=== PATIENT | female | born 1985 | race Caucasian/White ===

== ENCOUNTER 2020-09-16 11:24 | Emergency (ER) | payer SELFPAY ==
--- NOTE | 2020-09-16 13:27 | ER ---
Nurse's Notes [facility] Name: Zayda Odell Age: 35 yrs Sex: Female : 1985 Arrival Date: 09/16/2020 Time: 11:28 Bed 24 Private MD: Diagnosis: Local infection of the skin and subcutaneous tissue, unspecified Presentation: 09/16 12:13 Chief complaint: Patient states: rash to right side of face since Tuesday, is tender and iw the right side of face is swollen. Coronavirus screen: At this time, the client does not indicate any symptoms associated with coronavirus-19. Ebola Screen: Patient negative for fever greater than or equal to 101.5 degrees Fahrenheit, and additional compatible Ebola Virus Disease symptoms Patient denies exposure to infectious person. Patient denies travel to an Ebola-affected area in the 21 days before illness onset. No symptoms or risks identified at this time. Initial Sepsis Screen: Does the patient meet any 2 criteria? No. Patient's initial sepsis screen is negative. Does the patient have a suspected source of infection? No. Patient's initial sepsis screen is negative. Risk Assessment: Do you want to hurt yourself or someone else? Patient reports no desire to harm self or others. Onset of symptoms was September 14, 2020. 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 - Social history:: Smoking status: Patient denies any tobacco usage or history of. Screenin:40 Abuse screen: Denies threats or abuse. Nutritional screening: No deficits noted. jd3 Tuberculosis screening: No symptoms or risk factors identified. Fall Risk None identified. Assessment: 13:39 General: Appears in no apparent distress. uncomfortable, Behavior is calm, cooperative, jd3 appropriate for age. Pain: Complains of pain in right side of neck Quality of pain is described as aching. Neuro: Level of Consciousness is awake, alert, obeys commands, Oriented to person, place, time, situation. Cardiovascular: Capillary refill < 3 seconds Patient's skin is warm and dry. Respiratory: Airway is patent Respiratory effort is even, unlabored, Respiratory pattern is regular, symmetrical, Denies cough, shortness of breath. GI: No signs and/or symptoms were reported involving the gastrointestinal system. : No signs and/or symptoms were reported regarding the genitourinary system. EENT: No signs and/or symptoms were reported regarding the EENT system. Derm: Skin is intact, Skin is dry, Skin is normal, Skin temperature is warm Rash noted that is itchy, on right side of neck. Vital Signs: 12:13 BP 126 / 86; Pulse 75; Resp 16; Temp 97.9; Pulse Ox 100% on R/A; iw ED Course: 11:28 Patient arrived in ED. mr 12:08 Dianna Pool FNP-C is [facility]. kb 12:08 Abel Osorio MD is Attending Physician. kb 12:16 Triage completed. iw 12:16 Arm band placed on. iw 13:09 Rich Avila, KEIKO is Primary Nurse. jd3 13:40 Patient has correct armband on for positive identification. Bed in low position. Call jd3 light in reach. Side rails up X 1. Pulse ox on. NIBP on. 13:40 No provider procedures requiring assistance completed. Patient did not have IV access jd3 during this emergency room visit. Administered Medications: 13:20 Drug: predniSONE 40 mg Route: PO; jd3 13:41 Follow up: Response: No adverse reaction jd3 13:20 Drug: Bactrim (160 mg-800 mg (DS) 1 tablet Route: PO; jd3 13:41 Follow up: Response: No adverse reaction jd3 Outcome: 13:26 Discharge ordered by MD. kb 13:40 Discharged to home ambulatory. jd3 13:40 Condition: stable 13:40 Discharge instructions given to patient, Instructed on discharge instructions, follow up and referral plans. medication usage, Demonstrated understanding of instructions, follow-up care, medications, Prescriptions given X 2. 13:41 Patient left the ED. jd3 Signatures: Dianna Pool FNP-C FNP-Vanessa [place] Jamee Gibbs RN RN iw Rich Avila, KEIKO RN jd3 Corrections: (The following items were deleted from the chart) 12:16 12:13 Pulse 75bpm; Resp 16bpm; Temp 97.9F; iw iw
--- NOTE | 2020-09-16 13:27 | EDPHYS ---
Physician Documentation [facility] Name: Zayda Odell Age: 35 yrs Sex: Female : 1985 Arrival Date: 09/16/2020 Time: 11:28 Bed 24 Private MD: ED Physician Abel Osorio HPI: 09/16 17:39 This 35 yrs old Female presents to ER via Ambulatory with complaints of Rash, kb Facial Swelling. 17:39 The patient's rash thought to be caused by an unknown cause. The rash is located on the kb right cheek. The rash can be described as papular. Severity of symptoms: At their worst the symptoms were moderate in the emergency department the symptoms are unchanged. The patient has not experienced similar symptoms in the past. The patient has not recently seen a physician. 17:40 Onset: The symptoms/episode began/occurred 3 day(s) ago. Associated signs and symptoms: kb Pertinent positives: itching, Pain. Pt reports rash that started Tuesday with itching. States there is pain if she scratches the area. Started swelling yesterday. . 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 - Social history:: Smoking status: Patient denies any tobacco usage or history of. ROS: 17:34 Constitutional: Negative for fever, chills, and weight loss, MS/Extremity: Negative for kb injury and deformity, Neuro: Negative for headache, weakness, numbness, tingling, and seizure. 17:34 Neck: Positive for swelling. 17:34 Skin: Positive for rash, of the right cheek. Exam: 17:37 Constitutional: This is a well developed, well nourished patient who is awake, alert, kb and in no acute distress. Head/Face: Normocephalic, atraumatic. MS/ Extremity: Pulses equal, no cyanosis. Neurovascular intact. Full, normal range of motion. Neuro: Awake and alert, GCS 15, oriented to person, place, time, and situation. Cranial nerves II-XII grossly intact. Motor strength 5/5 in all extremities. Sensory grossly intact. Cerebellar exam normal. Normal gait. 17:37 Neck: Lymph nodes: lymphadenopathy is appreciated, anterior cervical nodes. 17:37 Skin: Appearance: normal except for affected area, swelling, noted on the right submandibular area, consistent with contact dermatitis, on the right cheek. Vital Signs: 12:13 BP 126 / 86; Pulse 75; Resp 16; Temp 97.9; Pulse Ox 100% on R/A; iw MDM: 12:08 Patient medically screened. kb 17:34 Data reviewed: vital signs, nurses notes. Data interpreted: Pulse oximetry: on room air kb is 100 %. Interpretation: normal. Counseling: I had a detailed discussion with the patient and/or guardian regarding: the historical points, exam findings, and any diagnostic results supporting the discharge/admit diagnosis, the need for outpatient follow up, a family practitioner, to return to the emergency department if symptoms worsen or persist or if there are any questions or concerns that arise at home. Administered Medications: 13:20 Drug: predniSONE 40 mg Route: PO; jd3 13:41 Follow up: Response: No adverse reaction jd3 13:20 Drug: Bactrim (160 mg-800 mg (DS) 1 tablet Route: PO; jd3 13:41 Follow up: Response: No adverse reaction jd3 Disposition: 18:34 Co-signature as Attending Physician, Abel Osorio MD. rn Disposition: 09/16/20 13:26 Discharged to Home. Impression: Local infection of the skin and subcutaneous tissue, unspecified. - Condition is Stable. - Discharge Instructions: Shingles, [id number], Rash, [id number]. - Prescriptions for Valtrex 1 g Oral Tablet - take 1 tablet by ORAL route every 8 hours for 7 days; 21 tablet. Bactrim DS 800- 160 mg Oral Tablet - take 1 tablet by ORAL route every 12 hours for 7 days; 14 tablet. - Medication Reconciliation Form, Thank You Letter, Antibiotic Education, Prescription Opioid Use, Work release form form. - Follow up: Emergency Department; When: As needed; Reason: Worsening of condition. Follow up: Private Physician; When: 2 - 3 days; Reason: Recheck today's complaints, Continuance of care, Re-evaluation by your physician. Signatures: Dianna Pool, DOMINGO-C REGIONAL PRODUCTION MANAGER-Jamee Prather, Abel Frank RN, MD MD rn Davies, Jonathon, RN RN jd3 Corrections: (The following items were deleted from the chart) 13:41 13:26 09/16/2020 13:26 Discharged to Home. Impression: Local infection of the skin and jd3 subcutaneous tissue, unspecified. Condition is Stable. Forms are Medication Reconciliation Form, Thank You Letter, Antibiotic Education, Prescription Opioid Use. Follow up: Emergency Department; When: As needed; Reason: Worsening of condition. Follow up: Private Physician; When: 2 - 3 days; Reason: Recheck today's complaints, Continuance of care, Re-evaluation by your physician. kb
[2020-09-16] MEDS ORDERED: SMZ./TMP. 800/160 MG TABLET ONE (13:29)
[2020-09-16] MEDS ORDERED: predniSONE 20 MG TAB ONE (13:29)
[2020-09-16 14:21] VITALS: BP 126/86; TEMP 97.9; O2SAT 100
== END 2020-09-16 13:41 | disposition home or self-care (01) ==
LOC: ER 11:24
DX: L08.9 Local infection of the skin and subcutaneous tissue, unspecified (principal)
CPT/HCPCS: 99283; J7512

== ENCOUNTER 2021-12-15 13:04 | Emergency (ER) | payer SELFPAY ==
--- OUTSIDE RECORDS SUMMARY | 2021-12-15 13:06 | XMS REPORT | Continuity of Care Document ---
:1985 Author Organization [facility] t Address [address] [place] [address] Care Team Providers Name Role Phone Pcp, Does Not Have A Primary Care Physician Doctor Unassigned, Name Attending Clinician Unavailable Sariah ANDERS Attending Clinician Unavailable Sariah Anders DO Attending Clinician Problems This patient has no known problems. Allergies, Adverse Reactions, Alerts Allergy Allergy Status Severity Reaction(s) Onset Inactive Treating Comm ents Source Name Type Date Date Clinician NO KNOWN Drug Active Univers ALLERGIE Class ity [facility] Social History Social Habit Start Date Stop Date Quantity Comments Source Exposure to Not sure [facility] SARS-CoV-2 (event) [facility] Sex Assigned At [birth year] [facility] 00:00:00 00:00:00 [facility] Smoking Status Start Date Stop Date Source Unknown if ever smoked [facility] Medications This patient has no known medications. Vital Signs Vital Name Observation Time Observation Value Comments Source Systolic blood 2021-09-02 22:25:00 137 mm[Hg] [facility]iver [facility] Diastolic blood 2021-09-02 22:25:00 88 mm[facility]Hg[facility] 2021-09-02 22:25:00 97 /min [facility] Body temperature 2021-09-02 22:25:00 37.78 [facility] Respiratory rate 2021-09-02 22:25:00 18 /min [facility] Body height 2021-09-02 22:25:00 167.6 cm [facility] Body weight 2021-09-02 22:25:00 83.915 kg [facility] BMI 2021-09-02 22:25:00 29.86 kg/m2 [facility] Oxygen saturation in 2021-09-02 22:25:00 100 /min [facility] Arterial blood by [facility] Pulse oximetry Branch Procedures Procedure Date / Time Performing Clinician Source Performed AUTHORIZATION FOR 2021-09-23 06:01:00 Doctor Unassigned, No [facility] RELEASE OF PHI Name [facility] Encounters Start End Encounter Admission Attending Care Care Encounter Source Date/Time Date/Time Type Type Clinicians Facility Department ID 2021-09-23 2021-09-23 Orders Doctor INIGUEZ [id number] Univers 00:00:00 00:00:00 Only Unassigned, JOSIANE [id number] [facility] [id number] [facility] [id number] [facility] 00[address] Branch 2021-09-02 2021-09-02 Emergency X CHAGORUST ERT [id number] Univers 16:27:00 18:02:00 SARAH gonzalez [facility] 2021-09-02 2021-09-02 Emergency ChagoRUST [id number] Univers 16:27:00 18:02:00 Sarah CUEVA [id number] ity [facility] [id number] [facility] [id number] [facility] 084 Branch Results This patient has no known results.
[2021-12-15] MEDS ORDERED: IBUPROFEN 200 MG TAB PO ONE (13:21)
--- NOTE | 2021-12-15 13:53 | ER ---
Nurse's Notes [facility] Name: Zayda Odell Age: 36 yrs Sex: Female : 1985 Arrival Date: 12/15/2021 Time: 13:04 Bed Waiting Private MD: Diagnosis: Acute tonsillitis, unspecified;Acute pharyngitis, unspecified Presentation: 12/15 13:12 Chief complaint: Patient states: Sore throat since X 5 days. White pockets on back of ld1 throat. Coronavirus screen: At this time, the client does not indicate any symptoms associated with coronavirus-19. Ebola Screen: No symptoms or risks identified at this time. Initial Sepsis Screen: Does the patient meet any 2 criteria? No. Patient's initial sepsis screen is negative. Does the patient have a suspected source of infection? No. Patient's initial sepsis screen is negative. Risk Assessment: Do you want to hurt yourself or someone else? Patient reports no desire to harm self or others. Onset of symptoms was December 15, 2021 at 13:12. 13:12 Method Of Arrival: Ambulatory ld1 13:12 Acuity: SERAFIN 4 ld1 Triage Assessment: 13:13 General: Appears in no apparent distress. comfortable, Behavior is calm, cooperative, ld1 appropriate for age. Pain: Denies pain. EENT: Reports sore throat. Neuro: Level of Consciousness is awake, alert, obeys commands, Oriented to person, place, time, situation. Cardiovascular: Capillary refill < 3 seconds Patient's skin is warm and dry. Respiratory: Airway is patent Respiratory effort is even, unlabored, Respiratory pattern is regular, symmetrical. GI: Abdomen is flat, non-distended. : No signs and/or symptoms were reported regarding the genitourinary system. Derm: No signs and/or symptoms reported regarding the dermatologic system. Musculoskeletal: No signs and/or symptoms reported regarding the musculoskeletal system. 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 - Social history:: Smoking status: Patient denies any tobacco usage or history of. Patient/guardian denies using alcohol. Screenin:58 Abuse screen: Denies threats or abuse. Denies injuries from another. Nutritional ld1 screening: No deficits noted. Tuberculosis screening: No symptoms or risk factors identified. Fall Risk None identified. Assessment: 13:58 Reassessment: Patient appears in no apparent distress at this time. No changes from ld1 previously documented assessment. Patient and/or family updated on plan of care and expected duration. Pain level reassessed. Patient is alert, oriented x 3, equal unlabored respirations, skin warm/dry/pink. Discharged from [facility]. Respiratory: Airway is patent Respiratory effort is even, unlabored, Respiratory pattern is regular, symmetrical, Breath sounds are clear bilaterally. Vital Signs: 13:12 BP 136 / 92; Pulse 91; Resp 18; Temp 98.7(O); Pulse Ox 99% on R/A; Weight 84.82 kg; ld1 Height 5 ft. 7 in. (170.18 cm); Pain 0/10; 13:58 BP 129 / 86; Pulse 89; Resp 18; Pulse Ox 100% on R/A; ld1 13:12 Body Mass Index 29.29 (84.82 kg, 170.18 cm) ld1 ED Course: 13:04 Patient arrived in ED. am2 13:07 Belkys Armenta FNP is [facility]. jh7 13:07 Seth Aponte DO is Attending Physician. jh7 13:13 Triage completed. ld1 13:13 Arm band placed on right wrist. ld1 13:19 Strep Sent. ld1 13:58 Patient has correct armband on for positive identification. Placed in gown. Bed in low ld1 position. Call light in reach. Side rails up X2. engine monitor on. Pulse ox on. NIBP on. Door closed. Noise minimized. Warm blanket given. 13:58 No provider procedures requiring assistance completed. Patient did not have IV access ld1 during this emergency room visit. Administered Medications: 13:19 Drug: Ibuprofen 600 mg Route: PO; ld1 Medication: 13:58 VIS not applicable for this client. ld1 Outcome: 13:52 Discharge ordered by . jh7 13:58 Discharged to home ambulatory. ld1 13:58 Condition: stable 13:58 Discharge instructions given to patient, Instructed on discharge instructions, follow up and referral plans. Demonstrated understanding of instructions, follow-up care, medications, Prescriptions given X 2. 13:59 Patient left the ED. ld1 Signatures: Lesli Law Lauren RN RN ld1 Belkys Armenta, HOG TENDER HOG TENDER jh7
[2021-12-15 14:30] VITALS: BP 129/86; O2SAT 100
--- NOTE | 2021-12-16 14:00 | EDPHYS ---
Physician Documentation [facility] Name: Zayda Odell Age: 36 yrs Sex: Female : 1985 Arrival Date: 12/15/2021 Time: 13:04 Bed Waiting Private MD: ED Physician Seth Aponte HPI: 12/15 13:15 This 36 yrs old Female presents to ER via Ambulatory with complaints of Sore Throat. jh7 13:15 The patient presents with sore throat. The patient describes throat pain as burning, jh7 constant. Onset: The symptoms/episode began/occurred 4 day(s) ago. Patient reports sore throat with white patches on her throat since Tuesday morning. She denies fever or any other symptoms.. 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 - Social history:: Smoking status: Patient denies any tobacco usage or history of. Patient/guardian denies using alcohol. ROS: 13:15 Constitutional: Negative for fever, chills, and weight loss, Neck: Negative for injury, jh7 pain, and swelling, Cardiovascular: Negative for chest pain, palpitations, and edema, Respiratory: Negative for shortness of breath, cough, wheezing, and pleuritic chest pain, Abdomen/GI: Negative for abdominal pain, nausea, vomiting, diarrhea, and constipation, Back: Negative for injury and pain, Skin: Negative for injury, rash, and discoloration, Neuro: Negative for headache, weakness, numbness, tingling, and seizure. 13:15 ENT: Positive for sore throat, Negative for injury or acute deformity, ear pain, nasal discharge, sinus congestion, difficulty swallowing, difficulty handling secretions. 13:15 All other systems are negative. Exam: 13:15 Constitutional: This is a well developed, well nourished patient who is awake, alert, jh7 and in no acute distress. Eyes: Pupils equal round and reactive to light, extra-ocular motions intact. Lids and lashes normal. Conjunctiva and sclera are non-icteric and not injected. Cornea within normal limits. Periorbital areas with no swelling, redness, or edema. Neck: Trachea midline, no thyromegaly or masses palpated, and no cervical lymphadenopathy. Supple, full range of motion without nuchal rigidity, or vertebral point tenderness. No Meningismus. Cardiovascular: Regular rate and rhythm with a normal S1 and S2. No gallops, murmurs, or rubs. Normal PMI, no JVD. No pulse deficits. Respiratory: Lungs have equal breath sounds bilaterally, clear to auscultation and percussion. No rales, rhonchi or wheezes noted. No increased work of breathing, no retractions or nasal flaring. Abdomen/GI: Soft, non-tender, with normal bowel sounds. No distension or tympany. No guarding or rebound. No evidence of tenderness throughout. Skin: Warm, dry with normal turgor. Normal color with no rashes, no lesions, and no evidence of cellulitis. Neuro: Awake and alert, GCS 15, oriented to person, place, time, and situation. Normal gait. 13:15 ENT: Posterior pharynx: Tonsils: erythema, that is moderate, exudate, that is moderate. Vital Signs: 13:12 BP 136 / 92; Pulse 91; Resp 18; Temp 98.7(O); Pulse Ox 99% on R/A; Weight 84.82 kg; ld1 Height 5 ft. 7 in. (170.18 cm); Pain 0/10; 13:58 BP 129 / 86; Pulse 89; Resp 18; Pulse Ox 100% on R/A; ld1 13:12 Body Mass Index 29.29 (84.82 kg, 170.18 cm) ld1 MDM: 13:15 Patient medically screened. [facility] 13:15 Data interpreted: Pulse oximetry: is 100 %. Interpretation: normal. Counseling: I had a [facility] detailed discussion with the patient and/or guardian regarding: the historical points, exam findings, and any diagnostic results supporting the discharge/admit diagnosis, to return to the emergency department if symptoms worsen or persist or if there are any questions or concerns that arise at home. ED course: Patient strep was negative. She remained stable throughout her ER visit. She was advised to do warm salt water gargles at home, take Tylenol or ibuprofen for pain, and take the prescribed medication as directed. If she develops any new concerning symptoms, she is advised to return to the ER for eval.. 13:50 Differential diagnosis: pharyngitis, tonsillitis, viral syndrome. Data reviewed: vital [facility] signs, nurses notes. 12/15 13:14 Order name: Strep; Complete Time: 13:49 ld1 12/15 13:36 Order name: Throat Culture EDMA Administered Medications: 13:19 Drug: Ibuprofen 600 mg Route: PO; ld1 Disposition: 22:01 Co-signature as Attending Physician, Seth Aponte DO Mayer was immediately available on-site ms3 in the Emergency Department for consultation in the care of the patient. . Disposition Summary: 12/15/21 13:52 Discharge Ordered Location: Home [facility] Problem: new [facility] Symptoms: are unchanged [facility] Condition: Stable [facility] Diagnosis - Acute tonsillitis, unspecified jh7 - Acute pharyngitis, unspecified jh7 Followup: [facility] - With: Private Physician - When: 2 - 3 days - Reason: Recheck today's complaints, Continuance of care Discharge Instructions: - Discharge Summary Sheet [facility] - Pharyngitis jh7 - Sore Throat jh7 - Tonsillitis [facility] Forms: - Medication Reconciliation Form [facility] - Thank You Letter [facility] Prescriptions: - Amoxicillin 875 mg Oral Tablet - take 1 tablet by ORAL route every 12 hours for 10 days; 20 tablet; Refills: 0, [facility] Product Selection Permitted - Prednisone 20 mg Oral Tablet - take 2 tablets by ORAL route once daily for 5 days; 10 tablet; Refills: 0, [facility] Product Selection Permitted Signatures: Dispatcher [employer] EDMA Seth Aponte DO DO ms3 Kiki Tellez RN RN ld1 Belkys Armenta FNP METAL SPINNER [facility] Corrections: (The following items were deleted from the chart) 15:43 13:52 Patient medically screened. [place] [id number]
== END 2021-12-15 13:59 | disposition home or self-care (01) ==
LOC: ER 13:04
DX: J03.90 Acute tonsillitis, unspecified (principal)
CPT/HCPCS: 87070; 87081; 99284

== ENCOUNTER 2023-01-28 06:29 | Emergency (ER) | payer SELFPAY ==
--- OUTSIDE RECORDS SUMMARY | 2023-01-28 06:32 | XMS REPORT | Continuity of Care Document ---
:1985 Author Organization [facility] t Address [address] [facility] [address] [place] [address] Care Team Providers Name Role Phone Pcp, Patient Does Not Have A Primary Care Physician +[id number] Doctor Unassigned, [place] Attending Clinician Unavailable SARAH ANDERS Attending Clinician Unavailable Sarah Anders DO Attending Clinician Problems This patient has no known problems. Allergies, Adverse Reactions, Alerts Allergy Allergy Status Severity Reaction(s) Onset Inactive Treating Comm ents Source Name Type Date Date Clinician NO KNOWN Drug Active Univers ALLERGIE Class ity [facility] Social History Social Habit Start Date Stop Date Quantity Comments Source Exposure to Not sure [facility] SARS-CoV-2 (event) Medica l Branch Sex Assigned At [birth year] [facility] 00:00:00 00:00:00 [facility] Smoking Status Start Date Stop Date Source Unknown if ever smoked [facility] Medications This patient has no known medications. Vital Signs Vital Name Observation Time Observation Value Comments Source Systolic blood 2021-09-02 22:25:00 137 mm[Hg] Univer sity [facility] Diastolic blood 2021-09-02 22:25:00 88 mm[Hg] Unive rsity [facility] Heart rate 2021-09-02 22:25:00 97 /min [facility] Body temperature 2021-09-02 22:25:00 37.78 [facility] Respiratory rate 2021-09-02 22:25:00 18 /min [facility] Body height 2021-09-02 22:25:00 167.6 cm [facility] Body weight 2021-09-02 22:25:00 83.915 kg [facility] BMI 2021-09-02 22:25:00 29.86 kg/m2 [facility] Oxygen saturation in 2021-09-02 22:25:00 100 /min [facility] Arterial blood by [facility] Pulse oximetry [place] Procedures Procedure Date / Time Performing Clinician Source Performed AUTHORIZATION FOR 2021-09-23 06:01:00 Doctor Unassigned, No [facility] RELEASE OF PHI Name [facility] Encounters Start End Encounter Admission Attending Care Care Encounter Source Date/Time Date/Time Type Type Clinicians Facility Department ID 2022-09-10 2022-09-10 Outpatient [facility] [id number] Wil 13:52:12 13:52:12 [id number] [place] 2022-09-03 2022-09-03 Outpatient [facility] Wil 08:58:09 08:58:09 [id number] [place] 2021-09-23 2021-09-23 Orders Doctor HIRA [id number] Univers 00:00:00 00:00:00 Only Unassigned, JOSIANE [id number] ity of [place] [facility] [id number] [facility] [id number] [place] [id number] Branch 2021-09-02 2021-09-02 Emergency [facility] ERT [id number] Univers 16:27:00 18:02:00 SARAH gonzalez [facility] 2021-09-02 2021-09-02 [facility] [id number] Univers 16:27:00 18:02:00 Sarah CUEVA [id number] ity [facility] [id number] [facility] [id number] [facility] 084 Branch Results Test Description Test Time Test Comments Results Result Comments Source T. [facility] - [place] 2022-09-07 11:54:03 Test Item Value Reference Range Interpretation Comme nts T. P[facility] - [place] (test NON-REACTIVE NON-REACTIVE [facility] has important pathology code = 67439) staff changes effective 09/15/2022. New patholo gy staff will provide uninter rupted, excellent patient care an d clinical consultation. S ee URL: [email or web address]. UNLESS OTHERWIS E INDICATED, ALL TESTING PERFORM ED AT CLINICAL PATHOLOGY [facility]. [address] [place] [address] [address] CARRIER: ANJEL BENSON M.D. CLIA NUMBER [id number] CAP ACCREDITATION N O. [id number] PAP TEST, THINPREP, [id number] 01:52:21 Test Item Value Reference Range Interpretation Comments SOURCE: (test Cervical/Endo code = 8001) cervical SLIDES: (test 1 code = 8011) LMP: (test code = 08/10/2022 8021) SPECIMEN (NOTE) Satisfactory f or ADEQUACY: (test evaluation. Endocervical code = 45287) cells/transfor mation zone component not identified. INTERPRETATION: NILM/NO (test code = EPITH. --------- 79539) ABNORMALITY;S -------- EE BELOW NEGATIVE FO R INTRAEPITHELIAL LESION OR MALIGNANCY ( NILM) --------- --------- --------- - OTHER COMMENTS: (NOTE) Shift in delfina ra (test code = suggestive of b acterial 8081) vaginosis. ANIMAL GROOMER: Micheline (test code = MANJU Chavez( 8101) CP) LOCATION: (test (NOTE) Specimens pr ocessed and code = 67857) [facility] at [facility], [address] [place] [address], , CLIA: [id number] CPT: (test code = (NOTE) 69087 UNLE SS OTHERWISE 8140) INDICATED, COMP UTER AIDED AND CYTOTECHNOLOGIS T SCREENING PERFO RMED. The Pap test is a s creening test with an in herent, but low probabi lity of error. Your pat ient should be remin ded to consult you imm ediately if she experien whit any suspicious sign s or symptoms, regar dless of her Pap test re sult. An alternate repor t format containing imag es or consolidated pr ior Pap history is avai lable as applicable. CT/NG, NAAT, [id number] 16:09:49 Test Item Value Reference Range Interpretation Comments CHLAMYDIA, NAAT, POSITIVE NEGATIVE A Testing is performed with THINPREP (test code the 88tc88as 6800/8800 = 03174) systems usingre al-time Polymerase Paco n Reaction (PCR) method. GONORRHEA, NAAT, NEGATIVE NEGATIVE A negative result does THINPREP (test code not excl ude low level = 42640) infection, specimensamplin g error, or collection erro r. Testing is performed wi th the Keith Lalito 680 systems usingre al-time Polymerase Paco n Reaction (PCR) method. HPV HIGH RISK WITH GENOTYPE, [id number] 16:04:20 Test Item Value Reference Range Interpretation Comments HPV HIGH RISK INTERP NEGATIVE NEGATIVE (test code = 46346) HPV 16 (test code = NEGATIVE 87470) HPV 18 (test code = NEGATIVE 89436) HPV, HR, OTHER NEGATIVE Testing meth odology is GENOTYPES (test code real-ti me PCR utilizing = 43609) hydrolysis prob es with the Keith Lalito 4800 system. The jerilyn t individually de tects genotypes 16 an d 18, as well as the oth er 12 high risk types (31,33,35,39,45 ,51,52,56 ,58,59,66,68). The expected result is negative. A neg ative result does not rule out the presence of HPV not included in the genotype set, a low leve l of infection or sp ecimen sampling error. [facility] has important p athology staff changes e ffective 09/15/2022. New pathology staff will provide uninter rupted, excellent patie nt care and clinical consultation. S ee URL: [email or web address]. UNLESS OTHERWISE INDICATED, ALL [facility]. [address] [place] [address] CLIA : [id number], CAP : [id number] VAGINAL PATHOGENS DNA [id number] 14:59:01 Test Item Value Reference Range Interpretation Comments BRIELLE SPECIES NEGATIVE NEGATIVE (test code = ) G. VAGINALIS POSITIVE NEGATIVE A (test code = ) T. VAGINALIS NEGATIVE NEGATIVE Note: The BD A ffirm VPIII (test code = Microbial Ident ification ) Testis a DNA pr obe test intended for us e in the detectionand id entification of Brielle spec ies, Gardnerellavagi nalis and Trichomonas vag inalis nucleic acid. [id number] 06:35:32 Test Item Value Reference Range Interpretation Comments RPR RESULT REACTIVE NON-REACTIVE A (test code = 3501) RPR TITER 1:1 TITER NOT INDIC. H NOTE: Specimen is RPR (test code = reactive, undil uted using 3500) automated image analysis method. For wea kly reactive samples, if cli nical suspicionof syp hilis is low, consider repeat RPR testing in 14 days.For all others, correlate with treponema-speci fic antibody testing(e.g. tr eponema pallidum-partic le agglutination, [facility] Code 4581).Biologic false positive results may be associated with autoimmunedisea se (including systemic lupus erythematosus), infectiousmonon ucleosis or other viral syn dromes, malaria, lepros y, pregnancyand recent immuniza tion, amongst others. [facility] has important pathology staff changes effective 09/15. New pathology staff will provide uninterrupted, excellent patient care an d clinical consultation. S ee URL: [email or web address] . UNLESS OTHERW ISE INDICATED, ALL TESTING PER FORMED AT CLINICAL PATHOL [facility] [facility] [employer], [place]. [address] [place] [address] C CAS: [id number], CAP : [id number] HIV 1/2 4TH GEN, RFLX [id number] 06:14:25 Test Item Value Reference Range Interpretation Comments HIV / 4TH GEN, RFLX CONF (test NON-REACTIVE NON-REACTIVE code = 3514)
[2023-01-28] MEDS ORDERED: FENTANYL CITR 100 MCG/2 ML ONE (07:56)
[2023-01-28] MEDS ORDERED: dexAMETHasone 10 MG/ML VIAL ONE (07:57)
[2023-01-28] MEDS ORDERED: DIAZEPAM 5 MG TABLET ONE (07:57)
[2023-01-28] MEDS ORDERED: NA CHLORIDE 0.9% 1,000 ML ONE (07:58)
[2023-01-28] MEDS ORDERED: KETOROLAC 30 MG/ML INJ ONE (07:58)
[2023-01-28] MEDS ORDERED: ONDANSETRON 4 MG/2 ML VIAL ONE (07:58)
[2023-01-28 08:09] LABS: Absolute Lymphocytes (CBC) 2.4 K/uL (0.7-4.9); Hematocrit 39.5 % (36.0-45.0); Lymphocytes % 26.5 % (15.3-44.8); MPV 10.2 fL (7.6-11.3); RBC Red Blood Cell Count 4.39 M/uL (3.86-4.86)
--- NOTE | 2023-01-28 08:10 | ER ---
Nurse's Notes [facility] Name: Zayda Odell Age: 37 yrs Sex: Female : 1985 Arrival Date: 01/28/2023 Time: 06:29 Bed 18 Private MD: Diagnosis: Torticollis Presentation: 01/28 06:43 Chief complaint: Patient states: On Tuesday night the right side of my neck started kd3 to hurt when i was sitting, playing my game on my phone. Since then it has progressively gotten worse and now i cannot move my head from side to side and it is extremely painful. Coronavirus screen: Vaccine status:. Ebola Screen: No symptoms or risks identified at this time. Initial Sepsis Screen: Does the patient meet any 2 criteria? No. Patient's initial sepsis screen is negative. Does the patient have a suspected source of infection? No. Patient's initial sepsis screen is negative. Risk Assessment: Do you want to hurt yourself or someone else? Patient reports no desire to harm self or others. Onset of symptoms was January 26, 2023. 06:43 Method Of Arrival: Ambulatory kd3 06:43 Acuity: SERAFIN 3 kd3 Triage Assessment: 06:45 General: Appears uncomfortable, Behavior is calm, cooperative. Pain: Complains of pain kd3 in neck. Neuro: Level of Consciousness is awake, alert, obeys commands, Oriented to person, place, time, situation. Cardiovascular: Patient's skin is warm and dry. Respiratory: Airway is patent Trachea midline Respiratory effort is even, unlabored, Respiratory pattern is regular, symmetrical. 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 - Social history:: Smoking status: Patient reports the use of cigarette tobacco products, smokes one pack cigarettes per day. - Family history:: not pertinent. Screenin:[address] [facility] ED Fall Risk Assessment (Adult) History of falling in the last 3 months, aa5 including since admission No falls in past 3 months (0 pts) Confusion or Disorientation No (0 pts) Intoxicated or Sedated No (0 pts) Impaired Gait No (0 pts) Mobility Assist Device Used No (0 pt) Altered Elimination No (0 pt) Score/Fall Risk Level 0 - 2 = Low Risk Oriented to surroundings, Maintained a safe environment, Educated pt \\T\\ family on fall prevention, incl call for assistance when getting out of bed. Abuse screen: Denies threats or abuse. Nutritional screening: No deficits noted. Tuberculosis screening: No symptoms or risk factors identified. Assessment: 07:05 General: Appears uncomfortable, Behavior is calm, cooperative. Pain: Complains of pain aa5 in neck Pain currently is 10 out of 10 on a pain scale. Quality of pain is described as sharp, shooting, Is continuous, Noted to be resistant to movement. Neuro: Level of Consciousness is awake, alert, obeys commands, Oriented to person, place, time, situation. Cardiovascular: Heart tones S1 S2 present Rhythm is regular. Respiratory: Airway is patent Respiratory effort is even, unlabored, Respiratory pattern is regular, symmetrical. GI: No signs and/or symptoms were reported involving the gastrointestinal system. : No signs and/or symptoms were reported regarding the genitourinary system. EENT: No signs and/or symptoms were reported regarding the EENT system. Derm: Skin is pink, warm \\T\\ dry. Musculoskeletal: Range of motion: intact in all extremities. 07:29 Reassessment: Pt to CT . aa5 07:55 Reassessment: Patient is alert, oriented x 3, equal unlabored respirations, skin aa5 warm/dry/pink. 08:45 Reassessment: Patient is alert, oriented x 3, equal unlabored respirations, skin aa5 warm/dry/pink. Patient states feeling better. Patient states symptoms have improved. Pt states "I can move my neck again". 08:46 Reassessment: Awaiting for ride home . aa5 09:34 Reassessment: DC HOME AMBULATORY. bp Vital Signs: 06:43 BP 118 / 84; Pulse 80; Resp 19; Temp 98.4(O); Pulse Ox 99% on R/A; Weight 86.18 kg; kd3 Height 5 ft. 7 in. ; 08:40 BP 103 / 63; Pulse 60; Resp 15 S; Temp 98.2(TE); Pulse Ox 100% on R/A; aa5 09:34 BP 108 / 69; Pulse 56; Resp 16; Pulse Ox 98% ; bp 06:43 Body Mass Index 29.76 (86.18 kg, 170.18 cm) kd3 ED Course: 06:31 Patient arrived in ED. ag3 06:43 Tari Mendoza, RN is Primary Nurse. kd3 06:45 Triage completed. kd3 06:45 Arm band placed on right wrist. kd3 07:05 Jose Armando Odell MD is Attending Physician. lissette 07:05 Patient has correct armband on for positive identification. Bed in low position. Call aa5 light in reach. Side rails up X2. 07:34 CT C Spine In Process Unspecified. EDMS 07:40 Initial lab(s) drawn, by me, sent to lab. Inserted saline lock: 20 gauge in right aa5 antecubital area, using aseptic technique. Blood collected. 08:10 George Melo MD is Referral Physician. lissette 09:34 No provider procedures requiring assistance completed. IV discontinued, intact, bp bleeding controlled, No redness/swelling at site. Pressure dressing applied. Administered Medications: 07:55 Drug: NS 0.9% IV 1000 ml Route: IV; Rate: 1 bolus; Site: right antecubital; aa5 08:46 Follow up: IV Status: Completed infusion; IV Intake: 1000ml aa5 07:55 Drug: Ondansetron IVP 4 mg Route: IVP; Site: right antecubital; aa5 08:42 Follow up: Response: No adverse reaction aa5 07:57 Drug: Decadron - Dexamethasone IVP 10 mg Route: IVP; Site: right antecubital; aa5 08:42 Follow up: Response: No adverse reaction aa5 07:59 Drug: Ketorolac IVP 30 mg Route: IVP; Site: right antecubital; aa5 08:42 Follow up: Response: No adverse reaction aa5 08:00 Drug: Diazepam PO 10 mg Route: PO; aa5 08:42 Follow up: Response: No adverse reaction aa5 08:00 Drug: fentaNYL (PF) IVP 50 mcg Route: IVP; Site: right antecubital; aa5 08:42 Follow up: Response: No adverse reaction aa5 Medication: 08:08 VIS not applicable for this client. aa5 Intake: 08:46 IV: 1000ml; Total: 1000ml. aa5 Outcome: 08:09 Discharge ordered by . lissette 09:34 Discharged to home ambulatory. bp 09:34 Condition: stable 09:34 Discharge instructions given to patient, Instructed on discharge instructions, follow up and referral plans. medication usage, Demonstrated understanding of instructions, follow-up care, medications, Prescriptions given X 4. 09:36 Patient left the ED. bp Signatures: Dispatcher [employer] EDMS Jose Armando Odell MD MD cha Calderon, Audri, RN RN aa5 Mateusz Russell RN RN Tracey Montes ag3 Tari Mendoza RN RN kd3 Corrections: (The following items were deleted from the chart) 08:07 06:45 LMP 01/28/2023 kd3 aa5 08:09 07:05 Pain: Complains of pain in neck Pain currently is 10 out of 10 on a pain scale. aa5 Quality of pain is described as sharp, shooting, Is continuous, aa5
--- NOTE | 2023-01-28 08:10 | EDPHYS ---
Physician Documentation [facility] Name: Zayda Odell Age: 37 yrs Sex: Female : 1985 Arrival Date: 01/28/2023 Time: 06:29 Bed 18 Private MD: Jose Armando Schwab HPI: 01/28 07:53 This 37 yrs old Female presents to ER via Ambulatory with complaints of Stiff lissette Neck. 07:53 The patient or guardian complains of decreased range of motion, pain, that is acute. lissette The symptoms are located on the base of the skull, diffusely. Onset: The symptoms/episode began/occurred 1 day(s) ago. Context: The problem was sustained at an unknown location, The neck injury/problem resulted from from unknown cause. Associated signs and symptoms: Pertinent positives: This patient does not have any pertinent positive signs or symptoms associated with neck pain. The pain does not radiate. Modifying factors: The symptoms are alleviated by remaining still, the symptoms are aggravated by movement. Severity of symptoms: At their worst the symptoms were mild, moderate, in the emergency department the symptoms are unchanged. The patient has not experienced similar symptoms in the past. 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 - Social history:: Smoking status: Patient reports the use of cigarette tobacco products, smokes one pack cigarettes per day. - Family history:: not pertinent. ROS: 07:53 Constitutional: Negative for fever, chills, and weight loss, Eyes: Negative for injury, lissette pain, redness, and discharge, ENT: Negative for injury, pain, and discharge, Cardiovascular: Negative for chest pain, palpitations, and edema, Respiratory: Negative for shortness of breath, cough, wheezing, and pleuritic chest pain, Abdomen/GI: Negative for abdominal pain, nausea, vomiting, diarrhea, and constipation, Back: Negative for injury and pain, : Negative for injury, bleeding, discharge, and swelling, MS/Extremity: Negative for injury and deformity, Skin: Negative for injury, rash, and discoloration, Neuro: Negative for headache, weakness, numbness, tingling, and seizure, Psych: Negative for depression, anxiety, suicide ideation, homicidal ideation, and hallucinations, Allergy/Immunology: Negative for hives, rash, and allergies, Endocrine: Negative for neck swelling, polydipsia, polyuria, polyphagia, and marked weight changes, Hematologic/Lymphatic: Negative for swollen nodes, abnormal bleeding, and unusual bruising. 07:53 Neck: Positive for pain with movement, pain at rest. Exam: 07:53 Constitutional: This is a well developed, well nourished patient who is awake, alert, lissette and in no acute distress. Head/Face: Normocephalic, atraumatic. Eyes: Pupils equal round and reactive to light, extra-ocular motions intact. Lids and lashes normal. Conjunctiva and sclera are non-icteric and not injected. Cornea within normal limits. Periorbital areas with no swelling, redness, or edema. ENT: Nares patent. No nasal discharge, no septal abnormalities noted. Tympanic membranes are normal and external auditory canals are clear. Oropharynx with no redness, swelling, or masses, exudates, or evidence of obstruction, uvula midline. Mucous membranes moist. Chest/axilla: Normal chest wall appearance and motion. Nontender with no deformity. No lesions are appreciated. Cardiovascular: Regular rate and rhythm with a normal S1 and S2. No gallops, murmurs, or rubs. Normal PMI, no JVD. No pulse deficits. Respiratory: Lungs have equal breath sounds bilaterally, clear to auscultation and percussion. No rales, rhonchi or wheezes noted. No increased work of breathing, no retractions or nasal flaring. Abdomen/GI: Soft, non-tender, with normal bowel sounds. No distension or tympany. No guarding or rebound. No evidence of tenderness throughout. Back: No spinal tenderness. No costovertebral tenderness. Full range of motion. Skin: Warm, dry with normal turgor. Normal color with no rashes, no lesions, and no evidence of cellulitis. MS/ Extremity: Pulses equal, no cyanosis. Neurovascular intact. Full, normal range of motion. Neuro: Awake and alert, GCS 15, oriented to person, place, time, and situation. Cranial nerves II-XII grossly intact. Motor strength 5/5 in all extremities. Sensory grossly intact. Cerebellar exam normal. Normal gait. Psych: Awake, alert, with orientation to person, place and time. Behavior, mood, and affect are within normal limits. 07:53 Neck: External neck: is normal, no acute changes, C-spine: appears grossly normal, no acute changes, ROM/movement: pain, that is moderate, with any movement, limited range of motion, that is mild, that is moderate, in any direction, Meningeal signs: are not present, nuchal rigidity, is not appreciated, Lymph nodes: no appreciated lymphadenopathy. Vital Signs: 06:43 BP 118 / 84; Pulse 80; Resp 19; Temp 98.4(O); Pulse Ox 99% on R/A; Weight 86.18 kg; kd3 Height 5 ft. 7 in. ; 08:40 BP 103 / 63; Pulse 60; Resp 15 S; Temp 98.2(TE); Pulse Ox 100% on R/A; aa5 09:34 BP 108 / 69; Pulse 56; Resp 16; Pulse Ox 98% ; bp 06:43 Body Mass Index 29.76 (86.18 kg, 170.18 cm) kd3 MDM: 07:05 Patient medically screened. lissette 07:58 Differential diagnosis: C-Spine Fracture Cervical Disc Herniation Cervical Raiculopathy lissette Cervical Spondylosis cervical strain, Degenerative Disc Disease Flexion Teardrop Fracture fracture, Neck Contusion Spondylolisthesis Spondylosis torticollis, Vertical Compression Injury. Data reviewed: vital signs, nurses notes, lab test result(s), CBC, electrolytes, hepatic panel, radiologic studies. Consideration of Admission/Observation Escalation of care including admission/observation considered. I considered the following discharge prescriptions or medication management in the emergency department Medications were administered in the Emergency Department. See MAR. Independent interpretation of the following test(s) in the Emergency Department CT Scan: My interpretation is ct c spine. Test considered but Not performed: EKG: no ekg. Care significantly affected by the following chronic conditions: no hx. Counseling: I had a detailed discussion with the patient and/or guardian regarding: the historical points, exam findings, and any diagnostic results supporting the discharge/admit diagnosis, lab results, radiology results, the need for outpatient follow up, for definitive care, a family practitioner, a neurologist. 01/28 07:19 Order name: CBC with Diff; Complete Time: 08:15 lissette 01/28 07:19 Order name: Comprehensive Metabolic Panel; Complete Time: 08:59 [facility] 01/28 07:19 Order name: CT C Spine; Complete Time: 08:15 [facility] Administered Medications: 07:55 Drug: NS 0.9% IV 1000 ml Route: IV; Rate: 1 bolus; Site: right antecubital; aa5 08:46 Follow up: IV Status: Completed infusion; IV Intake: 1000ml aa5 07:55 Drug: Ondansetron IVP 4 mg Route: IVP; Site: right antecubital; aa5 08:42 Follow up: Response: No adverse reaction aa5 07:57 Drug: Decadron - Dexamethasone IVP 10 mg Route: IVP; Site: right antecubital; aa5 08:42 Follow up: Response: No adverse reaction aa5 07:59 Drug: Ketorolac IVP 30 mg Route: IVP; Site: right antecubital; aa5 08:42 Follow up: Response: No adverse reaction aa5 08:00 Drug: Diazepam PO 10 mg Route: PO; aa5 08:42 Follow up: Response: No adverse reaction aa5 08:00 Drug: fentaNYL (PF) IVP 50 mcg Route: IVP; Site: right antecubital; aa5 08:42 Follow up: Response: No adverse reaction aa5 Disposition Summary: 01/28/23 08:09 Discharge Ordered Location: Home [facility] Problem: new lissette Symptoms: have improved lissette Condition: Stable lissette Diagnosis - Torticollis lissette Followup: lissette - With: Private Physician - When: 2 - 3 days - Reason: Recheck today's complaints, Re-evaluation by your physician Followup: lissette - With: George Melo MD - When: 2 - 3 days - Reason: Recheck today's complaints, Re-evaluation by your physician Discharge Instructions: - Discharge Summary Sheet [facility] - Acute Torticollis, Adult [facility] Forms: - Medication Reconciliation Form lissette - Thank You Letter lissette - Antibiotic Education [facility] - Prescription Opioid Use [facility] - Patient Portal Instructions [facility] Prescriptions: - acetaminophen-codeine 300-30 mg Oral tablet - take 2 tablet by ORAL route every 4 to 6 hours; 24 tablet; Refills: 0, Product lissette Selection Permitted - dexamethasone 2 mg Oral tablet - take 2 tablet by ORAL route every 12 hours; 10 tablet; Refills: 0, Product [facility] Selection Permitted - Valium 5 mg Oral Tablet - take 1 tablet by ORAL route every 8 hours As needed; 20 tablet; Refills: 0, lissette Product Selection Permitted - Diclofenac Sodium 75 mg Oral tablet,delayed release (DR/EC) - take 1 tablet by ORAL route 2 times per day; 20 tablet; Refills: 0, Product [facility] Selection Permitted Signatures: Dispatcher [employer] Jose Armando Fairchild MD MD cha Calderon, Audri RN RN aa5 Tari Mendoza RN RN kd3
--- NOTE | 2023-01-28 08:10 | RAD REPORT ---
EXAM DESCRIPTION: CT - C Spine Wo Con - 01/28/2023 7:32 am CLINICAL HISTORY: Pain COMPARISON: None. TECHNIQUE: Thin axial noncontrast CT images of the cervical spine were obtained with sagittal and co shaquille reconstruction images generated and reviewed. All CT scans are performed using dose optimization technique as appropriate and may include automated exposure control or mA/KV adjustment according to patient size. FINDINGS: Cervical body height and alignment are normal. Straightening of normal cervical lordosis w hich may be positional or secondary to muscle spasm. No disk space narrowing. Mild endplate remodelin g, most pronounced at C5-6. [id number] degenerative changes at the atlanto odontoid articulatio n. No fracture or acute bony abnormality. No paraspinal mass or hematoma. IMPRESSION: No acute cervical spine abnormality. Straightening of normal cervical lordosis, could be positional or secondary to muscle spasm.
[2023-01-28 08:25] LABS: Albumin 3.7 g/dL (3.4-5.0); Bilirubin Total 0.4 mg/dL (0.2-1.0); Potassium 3.8 mEq/L (3.5-5.1); Protein, Total 7.3 g/dL (6.4-8.2)
[2023-01-28 09:43] VITALS: TEMP 98.2
[2023-01-28 09:44] VITALS: BP 108/69; O2SAT 98
== END 2023-01-28 09:36 | disposition home or self-care (01) ==
LOC: ER 06:29
DX: M43.6 Torticollis (principal)
CPT/HCPCS: 36415; 72125; 80053; 85025; 96361; 96374; 96375; 99284; J1100; J2405; J3010; J7030